=== PATIENT | male | born 1980 | race Caucasian/White ===

== ENCOUNTER 2022-03-16 12:19 | Day surgery (SDC) | payer BC ==
[~2022-03-16] VITALS: Ht 180.3 cm; Wt 77.8 kg
[~2022-03-16 12:19] MED LIST: ALLEGRA ALLERG180 MG PO
== END 2022-03-16 14:24 | disposition home or self-care (01) ==
LOC: ORSCSDS 12:19
PROVIDERS: Student in an Organized Health Care Education/Training Program
PROC: 0DB58ZX Excision of Esophagus, Via Natural or Artificial Opening Endoscopic, Diagnostic (ICD-10-PCS; principal; 2022-03-16 15:00)
PROC: 0DB68ZX Excision of Stomach, Via Natural or Artificial Opening Endoscopic, Diagnostic (ICD-10-PCS; principal; 2022-03-16 15:00)
PROC: 0DB48ZX Excision of Esophagogastric Junction, Via Natural or Artificial Opening Endoscopic, Diagnostic (ICD-10-PCS; principal; 2022-03-16 15:00)
PROC: 0D878ZZ Division of Stomach, Pylorus, Via Natural or Artificial Opening Endoscopic (ICD-10-PCS; principal; 2022-03-16 15:00)
DX: K03.2 Erosion of teeth (principal); K22.2 Esophageal obstruction; K44.9 Diaphragmatic hernia without obstruction or gangrene; Z79.899 Other long term (current) drug therapy
CPT/HCPCS: 88305; 88342; J0330; J0461; J2405; J2704; J7120

== ENCOUNTER 2025-06-06 23:10 | Emergency (ER) | payer SELFPAY | END 2025-06-06 23:26 | disposition left against medical advice (07) | LOC: ER 23:10 | DX: M79.605 Pain in left leg (principal); Z53.21 Procedure and treatment not carried out due to patient leaving prior to being seen by health care provider ==